=== PATIENT | female | born 1985 | race Caucasian/White ===

== ENCOUNTER 2017-04-29 19:38 | Emergency (ER) | payer OTHER ==
[2017-04-29 19:49] VITALS: RESP 18; TEMP 98.8; O2SAT 96
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
[2017-04-29] MEDS ORDERED: IBUPROFEN 200 MG TAB PO ONE (21:01)
[2017-04-29] MEDS ORDERED: CYCLOBENZAPRINE 10MG PREPACK#3 BTL TAKEHOME ONE (21:02)
[2017-04-29 21:29] VITALS: BP 115/80; PULSE 89
== END 2017-04-29 21:28 | disposition home or self-care (01) ==
LOC: CED 19:38
DX: S16.1XXA Strain of muscle, fascia and tendon at neck level, initial encounter (principal); S46.911A Strain of unspecified muscle, fascia and tendon at shoulder and upper arm level, right arm, initial encounter; S46.912A Strain of unspecified muscle, fascia and tendon at shoulder and upper arm level, left arm, initial encounter; V89.2XXA Person injured in unspecified motor-vehicle accident, traffic, initial encounter
CPT/HCPCS: 70450-PO; 72070-PO; 72125-PO